=== PATIENT | female | born 1990 | race African-American/Black ===

== ENCOUNTER 2017-03-25 11:59 | Emergency (ER) | payer OTHER ==
[~2017-03-25] VITALS: Ht 162.6 cm; Wt 59.0 kg
[~2017-03-25 11:59] MED LIST: ALBUTEROL2.5 MG/31 INH; ALEVE220 M1 PO; ANTIVERT25 MG PO; BACTRIM DS TAB1 EACH PO; BENADRYL25 MG PO; CIPROFLOXACIN500 M1 PO; CITRATE OF MAG296 ML PO; COLACE 100 MG100 MG PO; DIFLUCAN150 MG PO; FAMVIR250 MG PO; FEROSUL325 M1 PO; IRON325 PO; NAPROSYN500 MG PO; NOHOMEMEDICATIONS; PEPCID20 MG PO; PHENERGAN 25 MG25 M1 PO; PREDNISONE 20 M20 M1 PO; TRINATE TABLET1 TAB PO; ULTRAM 50MG TAB50 MG PO; ZOFRAN ODT4 MG PO
[2017-03-25] MEDS ORDERED: FLEXERIL PO (13:51)
[2017-03-25] MEDS ORDERED: MOBIC15 MG PO (13:51)
[2017-03-25 14:09] VITALS: BP 108/67
== END 2017-03-25 14:10 | disposition home or self-care (01) ==
LOC: ER 11:59
DX: M54.9 Dorsalgia, unspecified (principal); J45.909 Unspecified asthma, uncomplicated; V43.52XA Car driver injured in collision with other type car in traffic accident, initial encounter; Y93.89 Activity, other specified; Y92.89 Other specified places as the place of occurrence of the external cause; Y99.9 Unspecified external cause status

== ENCOUNTER 2018-04-23 20:35 | Emergency (ER) | payer OTHER ==
[~2018-04-23] VITALS: Ht 162.6 cm; Wt 61.2 kg
[~2018-04-23 20:35] MED LIST changes: +FLEXERIL PO; +MOBIC15 MG PO
[2018-04-23 20:58] LABS: URINE BILIRUBIN NEGATIVE (Negative); URINE BLOOD NEGATIVE (Negative); URINE CLARITY CLEAR; URINE COLOR YELLOW; URINE GLUCOSE-RANDOM* NEGATIVE (Negative); URINE KETONES NEGATIVE (Negative); URINE NITRITE-REFLEX NEGATIVE (Negative); URINE PROTEIN (DIPSTICK) NEGATIVE (Negative); URINE SPECIFIC GRAVITY 1.025 (1.005-1.035); URINE UROBILINOGEN 0.2 E.U./dl (0.2-1.0)
[2018-04-23 21:02] LABS: URINE LEUKOCYTES-REFLEX TRACE (Negative)
[2018-04-23 23:50] LABS: HEMATOCRIT 31.6 % (37.0-47.0); HEMOGLOBIN 10.3 gm/dL (12.0-15.0); MCH 25.1 pg (26.0-34.0); MCHC 32.6 g/dL (28.0-37.0); RBC 4.1 mil/uL (4.20-5.00); RDW 16.2 % (10.5-14.5)
[2018-04-23 23:59] LABS: CALCIUM 9.1 mg/dL (8.5-10.1); CREATININE 0.7 mg/dL (0.6-1.0); POTASSIUM 3.5 mmol/L (3.5-5.1)
[2018-04-24 01:01] VITALS: BP 111/73
== END 2018-04-24 01:16 | disposition home or self-care (01) ==
LOC: ER 20:35
PROVIDERS: Emergency Medicine; Physician Assistant
DX: O20.0 Threatened abortion (principal); J45.909 Unspecified asthma, uncomplicated; M41.9 Scoliosis, unspecified; Z86.2 Personal history of diseases of the blood and blood-forming organs and certain disorders involving the immune mechanism; Z3A.01 Less than 8 weeks gestation of pregnancy

== ENCOUNTER 2019-08-31 23:12 | Emergency (ER) | payer OTHER ==
[~2019-08-31] VITALS: Ht 165.1 cm; Wt 54.4 kg
[2019-08-31 23:31] LABS: URINE BILIRUBIN NEGATIVE (Negative); URINE BLOOD TRACE (Negative); URINE CLARITY CLEAR; URINE COLOR YELLOW; URINE GLUCOSE-RANDOM* NEGATIVE (Negative); URINE KETONES NEGATIVE (Negative); URINE NITRITE-REFLEX NEGATIVE (Negative); URINE PROTEIN (DIPSTICK) NEGATIVE (Negative)
[2019-08-31 23:32] LABS: URINE LEUKOCYTES-REFLEX 1+ (Negative)
[2019-08-31 23:45] LABS: SQUAMOUS 4-10 Moderate /LPF (0-3)
[2019-08-31 23:46] LABS: BACTERIA-REFLEX 1-9 Few /HPF (None Seen); CASTS None Seen /LPF (None Seen); CRYSTALS None Seen /LPF (None Seen); MUCUS 0-3 Light strn/LPF (None Seen); URINE RBC 0-2 Rare /HPF (0-2); URINE WBC-REFLEX 6-15 Few /HPF (0-5)
[2019-09-01 00:01] LABS: HEMATOCRIT 30.9 % (37.0-47.0); HEMOGLOBIN 9.6 gm/dL (12.0-15.0); MCH 23.3 pg (26.0-34.0); MCV 75.2 fL (80.0-100.0); RBC 4.11 mil/uL (4.20-5.00); RDW 16.6 % (10.5-14.5); WBC 5.2 thou/uL (4.0-11.0)
[2019-09-01] MEDS ORDERED: LIDOCAINE VISC100 ML TOP (00:57)
[2019-09-01 01:10] VITALS: BP 145/99
== END 2019-09-01 01:12 | disposition home or self-care (01) ==
LOC: ER 23:12
PROVIDERS: Emergency Medicine
DX: A59.01 Trichomonal vulvovaginitis (principal); J45.909 Unspecified asthma, uncomplicated; M41.9 Scoliosis, unspecified; Z86.2 Personal history of diseases of the blood and blood-forming organs and certain disorders involving the immune mechanism

== ENCOUNTER 2019-11-09 20:18 | Emergency (ER) | payer OTHER ==
[~2019-11-09] VITALS: Ht 162.6 cm; Wt 54.4 kg
[~2019-11-09 20:18] MED LIST changes: +LIDOCAINE VISC100 ML TOP
[2019-11-09] MEDS ORDERED: ADVIL200 M3 PO (20:28)
[2019-11-09] MEDS ORDERED: IRON325 PO (20:43)
[2019-11-09 21:32] LABS: URINE BILIRUBIN NEGATIVE (Negative); URINE BLOOD TRACE (Negative); URINE CLARITY CLEAR; URINE COLOR YELLOW; URINE GLUCOSE-RANDOM* NEGATIVE (Negative); URINE KETONES NEGATIVE (Negative); URINE NITRITE-REFLEX NEGATIVE (Negative); URINE PROTEIN (DIPSTICK) TRACE (Negative); URINE UROBILINOGEN 0.2 E.U./dl (0.2-1.0)
[2019-11-09 21:33] LABS: URINE LEUKOCYTES-REFLEX 3+ (Negative)
[2019-11-09 21:38] LABS: BACTERIA-REFLEX 1-9 Few /HPF (None Seen); CASTS None Seen /LPF (None Seen); CRYSTALS None Seen /LPF (None Seen); SQUAMOUS 4-10 Moderate /LPF (0-3); URINE RBC 0-2 Rare /HPF (0-2); URINE WBC-REFLEX >25 Many /HPF (0-5)
[2019-11-09] MEDS ORDERED: FLAGYL500 M1 PO ×2 (22:56→23:00)
[2019-11-09 23:13] VITALS: BP 132/76
== END 2019-11-09 23:10 | disposition home or self-care (01) ==
LOC: ER 20:18
PROVIDERS: Emergency Medicine
DX: A59.9 Trichomoniasis, unspecified (principal); J45.909 Unspecified asthma, uncomplicated; Z79.899 Other long term (current) drug therapy

== ENCOUNTER 2020-02-29 08:25 | Emergency (ER) | payer OTHER ==
[~2020-02-29] VITALS: Ht 162.6 cm; Wt 53.1 kg
[~2020-02-29 08:25] MED LIST changes: +ADVIL200 M3 PO; +FLAGYL500 M1 PO
[2020-02-29] MEDS ORDERED: ENBRACE HR SOF1 EACH PO (08:47)
[2020-02-29] MEDS ORDERED: ZOFRAN ODT4 MG PO (08:49)
[2020-02-29] MEDS ORDERED: ZOFRAN4 MG PO (08:50)
[2020-02-29 08:53] LABS: URINE BILIRUBIN NEGATIVE (Negative); URINE BLOOD 3+ (Negative); URINE CLARITY CLEAR; URINE COLOR YELLOW; URINE GLUCOSE-RANDOM* NEGATIVE (Negative); URINE KETONES NEGATIVE (Negative); URINE LEUKOCYTES-REFLEX NEGATIVE (Negative); URINE NITRITE-REFLEX NEGATIVE (Negative); URINE PROTEIN (DIPSTICK) NEGATIVE (Negative); URINE SPECIFIC GRAVITY 1.015 (1.005-1.035); URINE UROBILINOGEN 0.2 E.U./dl (0.2-1.0)
[2020-02-29 09:08] LABS: HEMATOCRIT 30.7 % (37.0-47.0); HEMOGLOBIN 9.7 gm/dL (12.0-15.0); MCHC 31.5 g/dL (28.0-37.0); MCV 73.1 fL (80.0-100.0); RBC 4.2 mil/uL (4.20-5.00); RDW 19.7 % (10.5-14.5); WBC 6.5 thou/uL (4.0-11.0)
[2020-02-29 09:10] LABS: CASTS None Seen /LPF (None Seen); MUCUS 0-3 Light strn/LPF (None Seen); SQUAMOUS >10 Many /LPF (0-3)
[2020-02-29 09:12] LABS: BACTERIA-REFLEX 1-9 Few /HPF (None Seen); CRYSTALS None Seen /LPF (None Seen); URINE RBC >20 Many /HPF (0-2); URINE WBC-REFLEX 0-5 Rare /HPF (0-5)
[2020-02-29 09:20] LABS: CREATININE 0.5 mg/dL (0.6-1.0)
[2020-02-29 14:27] VITALS: BP 124/72
== END 2020-02-29 14:28 | disposition home or self-care (01) ==
LOC: ER 08:25
PROVIDERS: Emergency Medicine
DX: O20.0 Threatened abortion (principal); O99.511 Diseases of the respiratory system complicating pregnancy, first trimester; J45.909 Unspecified asthma, uncomplicated; Z3A.10 10 weeks gestation of pregnancy; Z79.899 Other long term (current) drug therapy; Z91.048 Other nonmedicinal substance allergy status

== ENCOUNTER 2021-03-28 21:21 | Emergency (ER) | payer OTHER ==
[~2021-03-28] VITALS: Ht 162.6 cm; Wt 58.1 kg
[~2021-03-28 21:21] MED LIST changes: +ENBRACE HR SOF1 EACH PO; +ZOFRAN4 MG PO
[2021-03-28 21:26] VITALS: BP 160/104
[2021-03-28 22:00] LABS: URINE BILIRUBIN NEGATIVE (Negative); URINE BLOOD 3+ (Negative); URINE CLARITY SL CLOUDY; URINE COLOR YELLOW; URINE GLUCOSE-RANDOM* NEGATIVE (Negative); URINE KETONES NEGATIVE (Negative); URINE PROTEIN (DIPSTICK) 3+ (Negative); URINE SPECIFIC GRAVITY 1.025 (1.005-1.035)
[2021-03-28 22:02] LABS: URINE LEUKOCYTES-REFLEX 1+ (Negative); URINE NITRITE-REFLEX POSITIVE (Negative)
[2021-03-28 22:16] LABS: MUCUS 0-3 Light strn/LPF (None Seen); SQUAMOUS 0-3 Few /LPF (0-3)
[2021-03-28 22:17] LABS: BACTERIA-REFLEX >30 Many /HPF (None Seen); CASTS None Seen /LPF (None Seen); CRYSTALS None Seen /LPF (None Seen); URINE RBC >20 Many /HPF (NONE SEEN); URINE WBC-REFLEX >25 Many /HPF (0-5); WBC CLUMPS Many (None Seen)
[2021-03-28 22:31] LABS: ABSOLUTE NEUTROPHILS 6.6 thou/uL (1.4-8.2); BASOPHILS 0.7 % (0.0-2.0); EOSINOPHILS 2.3 % (0.0-3.0); HEMATOCRIT 36.2 % (37.0-47.0); HEMOGLOBIN 11.4 gm/dL (12.0-15.0); LYMPHOCYTES 15.9 % (24.0-44.0); MCH 26.9 pg (26.0-34.0); MCHC 31.5 g/dL (28.0-37.0); MCV 85.4 fL (80.0-100.0); MONOCYTES 6.8 % (1.0-8.0); PLATELET COUNT 313 thou/uL (150-400); POLYS 74.3 % (36.0-66.0); RBC 4.24 mil/uL (4.20-5.00); RDW 13.4 % (10.5-14.5); WBC 8.8 thou/uL (4.0-11.0)
[2021-03-28 23:07] LABS: CALCIUM 8.6 mg/dL (8.5-10.1); CREATININE 0.7 mg/dL (0.6-1.0); POTASSIUM 3.3 mmol/L (3.5-5.1)
[2021-03-28 23:08] LABS: ALBUMIN 3.5 g/dL (3.4-5.0); TOTAL BILIRUBIN 0.7 mg/dL (0.2-1.0); TOTAL PROTEIN 7.6 g/dL (6.4-8.2)
[2021-03-28] MEDS ORDERED: CEPHALEXIN500 MG PO (23:24)
== END 2021-03-28 23:50 | disposition home or self-care (01) ==
LOC: ER 21:21
PROVIDERS: Emergency Medicine
DX: N39.0 Urinary tract infection, site not specified (principal); Z20.822 Contact with and (suspected) exposure to COVID-19; J45.909 Unspecified asthma, uncomplicated; Z79.899 Other long term (current) drug therapy

== ENCOUNTER 2021-04-23 11:47 | Emergency (ER) | payer OTHER ==
[~2021-04-23] VITALS: Ht 162.6 cm; Wt 58.1 kg
[~2021-04-23 11:47] MED LIST changes: +CEPHALEXIN500 MG PO
[2021-04-23 12:25] LABS: URINE BLOOD 3+ (Negative); URINE COLOR YELLOW; URINE GLUCOSE-RANDOM* TRACE (Negative); URINE KETONES TRACE (Negative); URINE PROTEIN (DIPSTICK) 2+ (Negative); URINE SPECIFIC GRAVITY 1.025 (1.005-1.035)
[2021-04-23 12:46] LABS: URINE CLARITY CLOUDY; URINE LEUKOCYTES-REFLEX 3+ (Negative); URINE NITRITE-REFLEX POSITIVE (Negative)
[2021-04-23 12:47] LABS: ICTOTEST (BILI CONFIRMATORY) Negative (Negative); URINE BILIRUBIN NEGATIVE (Negative)
[2021-04-23 12:52] LABS: CASTS None Seen /LPF (None Seen); SQUAMOUS 0-3 Few /LPF (0-3)
[2021-04-23 12:53] LABS: BACTERIA-REFLEX >30 Many /HPF (None Seen); CRYSTALS None Seen /LPF (None Seen); URINE RBC >20 Many /HPF (NONE SEEN); URINE WBC-REFLEX >25 Many /HPF (0-5)
[2021-04-23 13:41] LABS: ABSOLUTE NEUTROPHILS 5.8 thou/uL (1.4-8.2); BASOPHILS 0.8 % (0.0-2.0); EOSINOPHILS 0.3 % (0.0-3.0); HEMATOCRIT 37.1 % (37.0-47.0); HEMOGLOBIN 11.9 gm/dL (12.0-15.0); LYMPHOCYTES 15.2 % (24.0-44.0); MCHC 31.9 g/dL (28.0-37.0); MCV 84.7 fL (80.0-100.0); MONOCYTES 12.2 % (1.0-8.0); PLATELET COUNT 323 thou/uL (150-400); POLYS 71.5 % (36.0-66.0); RBC 4.38 mil/uL (4.20-5.00); RDW 13.5 % (10.5-14.5); WBC 8.1 thou/uL (4.0-11.0)
[2021-04-23 13:53] LABS: CALCIUM 8.9 mg/dL (8.5-10.1); CREATININE 0.8 mg/dL (0.6-1.0); POTASSIUM 4.1 mmol/L (3.5-5.1)
[2021-04-23 13:58] LABS: ALBUMIN 3.4 g/dL (3.4-5.0); TOTAL BILIRUBIN 1.3 mg/dL (0.2-1.0); TOTAL PROTEIN 8.4 g/dL (6.4-8.2)
[2021-04-23] MEDS ORDERED: ZOFRAN ODT4 MG PO (17:57)
[2021-04-23] MEDS ORDERED: CEPHALEXIN500 MG PO (17:57)
[2021-04-23 17:59] VITALS: BP 106/71
--- NOTE | 2021-04-24 07:03 | EKG ---
[address] [place] [address] ELECTROCARDIOGRAM REPORT Name: RACHEL DUTTANELI Room #: DEP [facility]#: [id number] Admission: 04/23/21 Attend Phys: Discharge: 04/23/21 Date of : 86 Report #: [id number] [facility] ED Test Date: 2021-04-23 Test Time: 12:37:41 Pat Name: RACHEL DUTTA Department: Room: Gender: F People Manager: [place] : 1990 Requested By: Pebbles Hudson Order Number: [id number] MD: Papi Najera Measurements Intervals [place] Rate: 116 P: 85 TN: 157 QRS: 59 QRSD: 86 T: -63 QT: 304 QTc: 423 Interpretive Statements Sinus tachycardia Biatrial enlargement Abnormal T, consider ischemia, diffuse leads Compared to ECG 02/13/2016 08:02:49 Atrial abnormality now present Possible ischemia now present Sinus rhythm no longer present T-wave abnormality still present Electronically Signed On 04-24-2021 7:02:55 CDT by Papi Najera [email or web address] <ELECTRONICALLY SIGNED> By: Papi Najera MD, FACC 04/24/21 0702 [id number] Papi Najera MD, FAC /EPI
== END 2021-04-23 18:00 | disposition home or self-care (01) ==
LOC: ER 11:47
PROVIDERS: Emergency Medicine; Nurse Practitioner Family
DX: U07.1 COVID-19 (principal); N12 Tubulo-interstitial nephritis, not specified as acute or chronic; E86.0 Dehydration; J45.909 Unspecified asthma, uncomplicated; Z79.899 Other long term (current) drug therapy; Z79.891 Long term (current) use of opiate analgesic; Z91.09 Other allergy status, other than to drugs and biological substances

== ENCOUNTER 2021-06-29 21:29 | Emergency (ER) | payer OTHER ==
[~2021-06-29] VITALS: Ht 162.6 cm; Wt 58.5 kg
[2021-06-29 21:31] VITALS: BP 134/96
== END 2021-06-29 22:48 | disposition home or self-care (01) ==
LOC: ER 21:29
DX: R10.32 Left lower quadrant pain (principal); J45.909 Unspecified asthma, uncomplicated; Z98.890 Other specified postprocedural states; Z79.899 Other long term (current) drug therapy; Z91.040 Latex allergy status; Z91.09 Other allergy status, other than to drugs and biological substances

== ENCOUNTER 2021-08-21 15:22 | Emergency (ER) | payer OTHER ==
[~2021-08-21] VITALS: Ht 162.6 cm; Wt 58.5 kg
[2021-08-21 15:24] VITALS: BP 113/68
[2021-08-21 16:27] LABS: URINE BILIRUBIN NEGATIVE (Negative); URINE BLOOD TRACE (Negative); URINE CLARITY SL CLOUDY; URINE COLOR YELLOW; URINE GLUCOSE-RANDOM* NEGATIVE (Negative); URINE KETONES TRACE (Negative); URINE NITRITE-REFLEX NEGATIVE (Negative); URINE PROTEIN (DIPSTICK) TRACE (Negative); URINE SPECIFIC GRAVITY 1.025 (1.005-1.035); URINE UROBILINOGEN 0.2 E.U./dl (0.2-1.0)
[2021-08-21 16:33] LABS: URINE LEUKOCYTES-REFLEX 2+ (Negative)
[2021-08-21 16:51] LABS: SQUAMOUS 4-10 Moderate /LPF (0-3)
[2021-08-21 16:52] LABS: URINE WBC-REFLEX >25 Many /HPF (0-5)
[2021-08-21 16:54] LABS: CALCIUM OXALATE 0-3 Few /LPF (None Seen); URINE RBC 1-2 Rare /HPF (NONE SEEN)
[2021-08-21 16:55] LABS: CASTS None Seen /LPF (None Seen)
== END 2021-08-21 17:15 | disposition home or self-care (01) ==
LOC: ER 15:22
PROVIDERS: Physician Assistant
DX: A59.01 Trichomonal vulvovaginitis (principal); J45.909 Unspecified asthma, uncomplicated; M41.9 Scoliosis, unspecified; Z91.040 Latex allergy status; Z88.8 Allergy status to other drugs, medicaments and biological substances; Z86.2 Personal history of diseases of the blood and blood-forming organs and certain disorders involving the immune mechanism